=== PATIENT | female | born 1965 | race Caucasian/White ===

== ENCOUNTER 2023-01-08 06:56 | Day surgery (SDC) | payer OTHER ==
[~2023-01-08] VITALS: Ht 152.4 cm; Wt 56.7 kg
[2023-01-08] MEDS ORDERED: LIDOCAINE 2% 100 MG/5 ML UJET TP ONE (08:24)
[2023-01-08] MEDS ORDERED: fentaNYL citrate 0.05 MG/ML VIAL ONE (08:24)
[2023-01-08] MEDS ORDERED: MIDAZOLAM 5 MG/5 ML VIAL ONE (08:24)
== END 2023-01-08 09:40 | disposition home or self-care (01) ==
LOC: MDS 06:56 → MMU 06:56 → MDS 09:40
PROVIDERS: ATTEND Internal Medicine Gastroenterology
DX: R19.4 Change in bowel habit (principal); E78.5 Hyperlipidemia, unspecified; M10.9 Gout, unspecified; Z90.710 Acquired absence of both cervix and uterus; Z98.890 Other specified postprocedural states; Z79.899 Other long term (current) drug therapy
CPT/HCPCS: J2250; J3010